=== PATIENT | male | born 1945 | race Caucasian/White ===

== ENCOUNTER 2024-06-19 00:51 | Day surgery (SDC) | payer MEDICARE, SELFPAY ==
[2024-06-10 12:33] VITALS: BMI 27.1
[2024-06-19 06:48] VITALS: BP 161/77; PULSE 71; RESP 18; TEMP 36.1; O2SAT 99; BMI 26.6
[2024-06-19] MEDS: LACTATED RINGERS 1,000 ML 150 ML IV CONT (06:59)
[2024-06-19 07:05] LABS: Glucose Point of Care 99 mg/dl (65-105)
--- NOTE | 2024-06-19 07:10 | WPDANESEPPF ---
Anes - Initial Pre Proc Eval Procedure: Operation Date: 06/19/24 08:00 Proposed Procedures p Screening Colonoscopy - Linwood Aparicio MD Date/Time: 06/19/24 07:10 Surgeon: Linwood Aparicio MD Pre Op Diagnosis: hx colon polyps Patient Data Age: 78 Gender: M Height: 1.83 m Weight: 89 kg Last Vital Signs Temp 36.1 C L 06/19/24 06:48 Pulse 71 06/19/24 06:48 Resp 18 06/19/24 06:48 BP 161/77 H 06/19/24 06:48 Pulse Ox 99 06/19/24 06:48 O2 Del Method Room Air 06/19/24 06:48 Allergies Allergy/AdvReac Type Severity Reaction Status Date / Time No Known Allergies Allergy Verified 06/19/24 06:47 Home Medications ?Medication ?Instructions ?Recorded ?Confirmed ?Type finasteride 5 mg tablet 5 mg PO DAILY 03/19/19 06/19/24 History metoprolol succinate 200 mg 200 mg PO DAILY 03/19/19 06/19/24 History tablet,extended release 24 hr simvastatin 40 mg tablet 40 mg PO DAILY 03/19/19 06/19/24 History tamsulosin 0.4 mg capsule 0.4 mg PO DAILY 03/19/19 06/19/24 History ezetimibe 10 mg tablet 10 mg PO DAILY 06/10/24 06/19/24 History glimepiride 4 mg tablet 4 mg PO DAILY 06/10/24 06/19/24 History Laboratory Tests 06/19/24 07:02 POC Capillary Glucose 99 mg/dl (65-105) Patient hx anesthesia problems: none Family hx anesthesia problems: none Results Review: All pre-operative results and documents have been reviewed as part of the pre-operative evaluation. [facility] Past Medical History Medical History Colon cancer screening Hypertension Hyperlipidemia Surgical History Surgical History (Updated 06/19/24 @ 07:14 by Jose Almonte MD) H/O colonoscopy H/O sinus surgery Social History Social History Smoking packs per day: 0.5 Smoking cigarettes per day: 10.0 Years smoked: 4 Smoking pack-years: 2.00 Smoking status: Former smoker Tobacco type: cigarettes Alcohol intake: never Drinks per week: 2 Alcohol use details: Beer Substance use: never Substance use type: does not use Living arrangements: with family Gender identity (if verbalized by the patient): Male Spiritual care concerns: No Anes - Eval Final PreProcedure Day of Procedure 06/19/24 07:10 Patient weight: overweight Heart: regular rate and rhythm Lungs: clear to auscultation Airway: Mallampati scale class II Neurological: alert and oriented Last oral intake: >/= 8 hours ASA classification: III Emergent: no Anesthetic plan: proceed Anesthesia type and monitoring: general GIVS and standard monitoring Results Review: All pre-operative results and documents have been reviewed as part of the pre-operative evaluation. Informed Consent: The patient's anesthetic plan and its attendant risks and benefits were discussed with the patient/family/POA. Questions were solicited and answers provided to the satisfaction of the patient/family/POA.
--- NOTE | 2024-06-19 07:45 | PM.HPGS ---
History of Present Illness History of Present Illness Consent: Risks, benefits, and alternatives have been discussed and questions answered. Patient agrees to proceed with procedure. Chief complaint: hx colon polyps Narrative: Adelfo Shelley Jr. is a 78 year old male with colon polyp in 2019 Review of Systems Review of Systems: All systems reviewed & are unremarkable except as noted in HPI and below PMFSH Past Medical History Medical History (Updated 06/19/24 @ 07:46 by Linwood Aparicio MD) Colon polyp Colon cancer screening Hypertension Hyperlipidemia Surgical History Surgical History (Updated 06/19/24 @ 07:14 by Jose Almonte MD) H/O colonoscopy H/O sinus surgery Social History Social History Smoking packs per day: 0.5 Smoking cigarettes per day: 10.0 Years smoked: 4 Smoking pack-years: 2.00 Smoking status: Former smoker Tobacco type: cigarettes Alcohol intake: never Drinks per week: 2 Alcohol use details: Beer Substance use: never Substance use type: does not use Living arrangements: with family Gender identity (if verbalized by the patient): Male Spiritual care concerns: No Meds Home Medications and Allergies Home Medications ?Medication ?Instructions ?Recorded ?Confirmed ?Type finasteride 5 mg tablet 5 mg PO DAILY 03/19/19 06/19/24 History metoprolol succinate 200 mg 200 mg PO DAILY 03/19/19 06/19/24 History tablet,extended release 24 hr simvastatin 40 mg tablet 40 mg PO DAILY 03/19/19 06/19/24 History tamsulosin 0.4 mg capsule 0.4 mg PO DAILY 03/19/19 06/19/24 History ezetimibe 10 mg tablet 10 mg PO DAILY 06/10/24 06/19/24 History glimepiride 4 mg tablet 4 mg PO DAILY 06/10/24 06/19/24 History Allergies Allergy/AdvReac Type Severity Reaction Status Date / Time No Known Allergies Allergy Verified 06/19/24 06:47 Vital Signs Vital Signs - 24 hr 06/19/24 06:48 Temperature 97 F L Pulse Rate 71 Respiratory Rate 18 Blood Pressure 161/77 H Pulse Oximetry 99 Oxygen Delivery Room Air Exam Const: General: comfortable and no acute distress HENMT: Face/Nose/Sinus: Normal nares present Eyes: General: appearance normal, both eyes and all related structures Neck: Neck: no JVD Resp: Auscultation: clear to auscultation bilaterally Cardio: Rate: regular rate Rhythm: regular rhythm GI: Inspection: non-distended GI Palp: Yes Soft to palpation Skin: General skin exam: normal color Neuro: Speech: normal speech Extrem: General: normal to inspection Psych: Mental Status: mental status grossly normal Assessment and Plan Assessment and plan (1) Colon polyp: Code(s): K63.5 - Polyp of colon Status: Acute Assessment and Plan: colonoscopy
[2024-06-19 08:04] VITALS: BP 115/65; PULSE 63; RESP 20; O2SAT 97
[2024-06-19 08:14] VITALS: BP 126/74; PULSE 64; RESP 18; O2SAT 98
[2024-06-19 08:24] VITALS: BP 131/61; PULSE 58; RESP 18; O2SAT 99
== END 2024-06-19 08:32 | disposition home or self-care (01) ==
PROVIDERS: PCP Family Medicine; Referring Provider Internal Medicine Gastroenterology; Visit Provider Internal Medicine Gastroenterology
PROC: 0DJD8ZZ Inspection of Lower Intestinal Tract, Via Natural or Artificial Opening Endoscopic (ICD-10-PCS; CPT 45378; principal; 2024-06-19 08:00)
DX: Z12.11 Encounter for screening for malignant neoplasm of colon (principal); D12.2 Benign neoplasm of ascending colon; D12.3 Benign neoplasm of transverse colon; K63.5 Polyp of colon; K64.8 Other hemorrhoids; Z79.899 Other long term (current) drug therapy; Z87.891 Personal history of nicotine dependence
CPT/HCPCS: 45385; 82948; 88305; J2003; J2704; J7120